=== PATIENT | female | born 1995 | race Caucasian/White ===

== ENCOUNTER 2021-10-19 20:36 | Emergency (ER) | payer OTHER ==
[~2021-10-19] VITALS: Ht 160 cm; Wt 68.5 kg
[2021-10-19 20:36] VITALS: BP 118/86
--- NOTE | 2021-10-19 21:54 | RAD ---
XR KNEE _4 VIEWS WITH PATELLA_LT DATE: 10/19/2021 9:25 PM INDICATION: knee pain COMPARISON: None. FINDINGS: Bones: There is no evidence of acute fracture or dislocation. Joints: The joint spaces are normal. There is no joint effusion. Miscellaneous: None. IMPRESSION: Normal exam Electronically signed by: Casimiro Weber MD (10/19/2021 9:52 PM) [facility]
--- NOTE | 2021-10-19 22:33 | PHYS DOC ---
General Adult EDM: Chief Complaint: KNEE INJURY HPI: HPI: ".. I ve got some pain in my Lt knee.. "..." I went down to [place] some trash yesterday and I slipped... And felt my knee goes sideways and pop and since that time it hurt real bad"..." It is the same knee I hurt when I was in high school."" Patient is a 25 year old female who presents with above hx and complaints left knee pain after twisting injury yesterday at approximately 16 30 hours. Since this time has had pain in left knee. Localized primarily in meniscus and posterior knee compartments. Can do straight leg lift. There is no aggressive. Be intact. A little more below a month appreciable in left knee as compared to right knee. Patient denies other injuries. Patient normally healthy. Does not follow-up primary care. No recent travel. No history of immunosuppression. Review of Systems: Review of Systems: Constitutional: Denies fever or chills Eyes: Denies change in visual acuity HENT: Denies nasal congestion or sore throat Respiratory: Denies cough or shortness of breath Cardiovascular: Denies chest pain or edema GI: Denies abdominal pain, nausea, vomiting, bloody stools or diarrhea : Denies dysuria Musculoskeletal: Denies back pain or joint pain Integument: Denies rash Neurologic: Denies headache, focal weakness or sensory changes Endocrine: Denies polyuria or polydipsia Lymphatic: Denies swollen glands Psychiatric: Denies depression or anxiety Family History: Family History: Noncontributory to presentation Current Medications: Current Meds: See nursing for home meds Allergies: Allergies: Allergies Coded Allergies Type Severity Reaction Last Updated Verified No Known Drug Allergies 10/19/21 No Physical Exam: PE: Constitutional: Well developed, well nourished, no acute distress, non-toxic appearance. [] HENT: Normocephalic, atraumatic, bilateral external ears normal, oropharynx moist, no oral exudates, nose normal. [] Eyes: PERRLA, EOMI, conjunctiva normal, no discharge. [] Neck: Normal range of motion, no tenderness, supple, no stridor. [] Cardiovascular:Heart rate regular rhythm, no murmur [] Lungs & Thorax: Bilateral breath sounds equal apex on auscultation [] Abdomen: Bowel sounds normal, soft, no tenderness, no masses, no pulsatile masses. [] Skin: Warm, dry, no erythema, no rash. [] Back: No tenderness, no CVA tenderness. [] Extremities: No tenderness, no cyanosis, no clubbing, ROM intact, no edema. [] Complaints of left knee pain as per HPI. No cording. Neurologic: Alert and oriented X 3, normal motor function, normal sensory function, no focal deficits noted. [] Psychologic: Affect anxious, judgement normal, mood normal. [] EKG: EKG: [] Radiology/Procedures: Radiology/Procedures: [][address] [address] IMAGING REPORT Signed PATIENT: BOYD HOUSTON ACCOUNT: [id number] : 1995 LOCATION: ER AGE: 25 SEX: F EXAM STATUS: REG ER ORD. PHYSICIAN: JOSE ADAMS MD REASON: knee pain PROCEDURE: KNEE LEFT 4V XR KNEE _4 VIEWS WITH PATELLA_LT DATE: 10/19/2021 9:25 PM INDICATION: knee pain COMPARISON: None. FINDINGS: Bones: There is no evidence of acute fracture or dislocation. Joints: The joint spaces are normal. There is no joint effusion. Miscellaneous: None. IMPRESSION: Normal exam Electronically signed by: Angelina Gaytan MD (10/19/2021 9:52 PM) [facility] DICTATED AND SIGNED BY: ANGELINA GAYTAN MD DATE: 10/19/21 2562 CC: JOSE ADAMS MD; EMERGENCY,DEPARTMENT; PCP,NO ~ Heart Score: C/O Chest Pain: N/A Risk Factors: Risk Factors: DM, Current or recent (<one month) smoker, HTN, HLP, family history of CAD, obesity. Risk Scores: Score 0 - 3: 2.5% MACE over next 6 weeks - Discharge Home Score 4 - 6: 20.3% MACE over next 6 weeks - Admit for Clinical Observation Score 7 - 10: 72.7% MACE over next 6 weeks - Early Invasive Strategies Course & Med Decision Making: Course & Med Decision Making Pertinent Labs and Imaging studies reviewed. (See chart for details) Patient take Tylenol and ibuprofen as needed for pain. Use ice pack. H. Consider follow-up with orthopedics. Consider follow-up with [facility] [phone] Impression:. 1. Collateral ligament injury 2. Possible meniscus injury 3 . Left knee sprain strain [] Dragon Disclaimer: Dragon Disclaimer: This electronic medical record was generated, in whole or in part, using a voice recognition dictation system. Departure Departure: Referrals: PCP,NO (PCP) Ashish Disclaimer This chart was dictated in whole or in part using Voice Recognition software in a busy, high-work load, and often noisy Emergency Department environment. It may contain unintended and wholly unrecognized errors or omissions. JOSE ADAMS MD Oct 19, 2021 22:33
== END 2021-10-19 23:00 | disposition home or self-care (01) ==
LOC: ER 20:36
DX: S83.402A Sprain of unspecified collateral ligament of left knee, initial encounter (principal); X50.9XXA Other and unspecified overexertion or strenuous movements or postures, initial encounter; Y93.89 Activity, other specified; Y92.89 Other specified places as the place of occurrence of the external cause; Y99.8 Other external cause status
CPT/HCPCS: 73564; 99283